=== PATIENT | female | born 1955 | race Caucasian/White ===

== ENCOUNTER 2019-03-08 10:16 | Outpatient (CLI) | payer BC ==
--- NOTE | 2019-03-08 11:25 | BD ---
EXAM: DEXA bone density examination HISTORY: 64-year-old postmenopausal female for screening COMPARISON: None FINDINGS: L1--bone mineral density 0.710 g/sq cm; T score -2.5 L2--bone mineral density 0.677 g/sq cm; T score -3.2 L3--bone mineral density 0.691 g/sq cm; T score -3.6 L4--bone mineral density 0.716 g/sq cm; T score -3.1 Total L1-L4--bone mineral density 0.698 g/sq cm; T score -3.2 Left femoral neck--bone mineral density0.576; T score -2.5 Total proximal left femur--bone mineral density 0.745; T score -1.6 IMPRESSION: Osteoporosis
== END 2019-03-08 10:17 | disposition home or self-care (01) ==
LOC: BICMAMMO 10:16
PROVIDERS: ATTEND Internal Medicine Rheumatology
DX: M81.0 Age-related osteoporosis without current pathological fracture (principal)
CPT/HCPCS: 77080

== ENCOUNTER 2019-04-16 16:11 | Outpatient (CLI) | payer BC ==
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
--- NOTE | 2019-04-16 16:54 | RAD ---
CERVICAL SPINE THREE VIEWS: 04/16/19 HISTORY: Cervicalgia. Right sided neck pain. FINDINGS: Multilevel degenerative changes are seen. No fracture, subluxation or bony destruction identified. IMPRESSION: Cervical spondylosis. POS: OFF
--- NOTE | 2019-04-16 16:55 | RAD ---
MANDIBLE FOUR VIEWS: 04/16/19 HISTORY: Right sided jaw pain. Osteoporosis. FINDINGS/IMPRESSION: The mandible appears intact. No definite fracture identified. If there is concern for osteonecrosis, further evaluation with CT scan should be obtained. POS: OFF
== END 2019-04-16 16:12 | disposition home or self-care (01) ==
LOC: BICRAD 16:11
PROVIDERS: ATTEND Physician Assistant Medical
DX: M81.0 Age-related osteoporosis without current pathological fracture (principal); M54.2 Cervicalgia; M25.561 Pain in right knee; M47.812 Spondylosis without myelopathy or radiculopathy, cervical region
CPT/HCPCS: 70110; 72040

== ENCOUNTER 2019-07-07 14:34 | Outpatient (CLI) | payer BC ==
--- NOTE | 2019-07-07 15:35 | RAD ---
EXAM: RIGHT HIP TWO VIEWS: 07/07/19 HISTORY: Right hip pain. FINDINGS: Mild osteoarthrosis changes right hip joint. No fracture, dislocation, or other acute process. IMPRESSION: Mild right hip joint osteoarthrosis and degenerative change without acute fracture or dislocation. POS: OFF
== END 2019-07-07 14:35 | disposition home or self-care (01) ==
LOC: BICRAD 14:34
PROVIDERS: ATTEND Physician Assistant Medical
DX: M25.551 Pain in right hip (principal); M16.11 Unilateral primary osteoarthritis, right hip

== ENCOUNTER 2019-08-20 09:48 | Outpatient (CLI) | payer BC ==
--- NOTE | 2019-08-20 10:32 | RAD ---
CHEST 2 VIEWS: HISTORY: Cough, bronchitis. FINDINGS: Heart size is within normal limits. The lungs are clear. No confluent pneumonia, overt edema, or pl eural effusion. IMPRESSION: No significant acute intrathoracic disease. POS: [facility]
== END 2019-08-20 09:49 | disposition home or self-care (01) ==
LOC: BICRAD 09:48
PROVIDERS: ATTEND Physician Assistant Medical
DX: J40 Bronchitis, not specified as acute or chronic (principal)
CPT/HCPCS: 71046

== ENCOUNTER 2020-08-14 09:45 | Outpatient (CLI) | payer BC ==
--- NOTE | 2020-08-14 10:30 | RAD ---
LEFT SHOULDER 3 VIEWS: Date: 08/14/2020 HISTORY: Left shoulder pain. FINDINGS: There are minimal arthritic changes of the shoulder. The bones appear demineralized. No fractures or other findings. IMPRESSION: No acute bony changes. POS: [facility]
== END 2020-08-14 09:46 | disposition home or self-care (01) ==
LOC: BICRAD 09:45
PROVIDERS: ATTEND Family Medicine
DX: M25.512 Pain in left shoulder (principal)